=== PATIENT | female | born 1955 | race Caucasian/White ===

== ENCOUNTER 2019-09-17 10:53 | Inpatient (IN) | payer MEDICARE, MEDICAID ==
[~2019-09-17] VITALS: Ht 162.6 cm; Wt 81.6 kg
[2019-09-17] MEDS ORDERED: LISI-186 PO (11:00)
[2019-09-17] MEDS ORDERED: ASPI-1497 PO (11:00)
[2019-09-17] MEDS ORDERED: INSU100I28 SQ (11:00)
[2019-09-17] MEDS ORDERED: SODIUM CHLORIDE 0.9% 1,000 ML IV ONE ×2 (13:56→15:45)
[2019-09-17] MEDS ORDERED: ONDANSETRON HCL 4MG/2ML INJ IV STA (13:56)
[2019-09-17] MEDS ORDERED: FLUORESCEIN SODIUM 1MG/STRIP EACHEYE ONE (14:00)
[2019-09-17 14:50] LABS: BASOPHILS % 0.4 % (0.0-2.0); EOSINOPHILS % 0.1 % (0.0-5.0); HEMATOCRIT. 39.1 % (36.0-48.0); HEMOGLOBIN. 12.9 g/dL (12.0-16.0); LYMPHOCYTES % 20.8 % (20.0-50.0); MEAN CORPUSCULAR VOLUME 90.8 fL (81.0-99.0); MEAN PLATELET VOLUME 10.1 fl (7.4-10.4); MONOCYTES % 5.2 % (2.0-8.0); NEUTROPHILS % 73.5 % (40.0-76.0); PLATELET 280 x1000/uL (130-400); RED BLOOD CELL COUNT 4.31 mill/uL (4.2-5.4); RED CELL DISTRIBUTION WIDTH 13.2 % (11.6-14.6)
[2019-09-17 14:56] LABS: CHLORIDE 91 mEq/L (98-107)
[2019-09-17] MEDS ORDERED: ONDANSETRON HCL 4MG/2ML INJ IV ONE (15:45)
[2019-09-17] MEDS ORDERED: INSULIN LISPRO 100 UNITS/ML SUBCUT ONE (15:45)
[2019-09-17 16:00] LABS: CLARITY URINE CLEAR (CLEAR); COLOR URINE YELLOW (YELLOW); KETONES URINE NEGATIVE (NEGATIVE); LEUKOCYTE ESTERASE URINE NEGATIVE (NEGATIVE); NITRITE URINE NEGATIVE (NEGATIVE); OCCULT BLOOD URINE TRACE (NEGATIVE); PROTEIN URINE 2+ (NEGATIVE); SPECIFIC GRAVITY URINE 1.017 (1.005-1.030); UROBILINOGEN URINE 0.2 E.U./dL (0.2-1.0)
[2019-09-17] MEDS ORDERED: OSELTAMIVIR 75MG CAPSULE PO NR (17:04)
[2019-09-17] MEDS ORDERED: ACETAMINOPHEN 650MG SUPP PR PRN (17:45)
[2019-09-17] MEDS ORDERED: MAGNESIUM/ALUMINUM HYDROXIDE/SIMETHICONE 30ML UDC PO PRN (17:45)
[2019-09-17] MEDS ORDERED: LORAZEPAM 0.5MG TABLET PO PRN (17:45)
[2019-09-17] MEDS ORDERED: DEXTROSE 50% WATER 50ML SYRINGE IV PRN (17:45)
[2019-09-17] MEDS ORDERED: GUAIFENESIN 200MG/10ML SUGAR FREE UDC PO PRN (17:45)
[2019-09-17] MEDS ORDERED: DOCUSATE SODIUM 100MG CAPSULE PO PRN (17:45)
[2019-09-17] MEDS ORDERED: IPRATROPIUM/ALBUTEROL 0.5-3(2.5)MG/3ML NEB NEB PRN (17:45)
[2019-09-17] MEDS ORDERED: ACETAMINOPHEN 325MG TABLET PO PRN (17:45)
[2019-09-17] MEDS ORDERED: FAMOTIDINE 20MG/2ML VIAL IV NR (18:00)
[2019-09-17] MEDS ORDERED: LEVOFLOXACIN 500MG PREMIX 100 ML IV NR (18:00)
[2019-09-17] MEDS: SODIUM CHLORIDE 0.9% 1,000 ML IV SCH (18:41)
[2019-09-17] MEDS: BLOOD SUGAR DIAGNOSTIC STRIP TEST SCH (18:42)
[2019-09-17] MEDS: INSULIN LISPRO 100 UNITS/ML SUBCUT SCH (18:42)
[2019-09-17] MEDS: CLONIDINE 0.1MG TABLET PO PRN (20:41)
[2019-09-17] MEDS ORDERED: ENOXAPARIN 30MG/0.3ML SYR SUBCUT SCH (23:00)
[2019-09-18] VITALS (9 sets, daily range): BP systolic 114–196; BP diastolic 52–96
[2019-09-18] MEDS: BLOOD SUGAR DIAGNOSTIC STRIP TEST SCH ×6 (02:00→23:33)
[2019-09-18] MEDS: SODIUM CHLORIDE 0.9% 1,000 ML IV SCH ×3 (03:31→23:59)
[2019-09-18] MEDS: INSULIN LISPRO 100 UNITS/ML SUBCUT SCH ×6 (03:36→23:39)
[2019-09-18] MEDS ORDERED: PNEUMOCOCCAL 23-VAL P-SAC VAC 0.5 ML IM ONE (03:45)
[2019-09-18 05:06] LABS: BASOPHILS % 0.5 % (0.0-2.0); EOSINOPHILS % 0.6 % (0.0-5.0); HEMATOCRIT. 33.7 % (36.0-48.0); HEMOGLOBIN. 11.5 g/dL (12.0-16.0); LYMPHOCYTES % 25.3 % (20.0-50.0); MEAN CORPUSCULAR HEMOGLOBIN 30.2 pg (28.0-32.0); MEAN CORPUSCULAR VOLUME 88.2 fL (81.0-99.0); MEAN PLATELET VOLUME 9.8 fl (7.4-10.4); MONOCYTES % 7.6 % (2.0-8.0); PLATELET 255 x1000/uL (130-400); RED BLOOD CELL COUNT 3.82 mill/uL (4.2-5.4); RED CELL DISTRIBUTION WIDTH 13.2 % (11.6-14.6)
[2019-09-18 05:22] LABS: CHLORIDE 101 mEq/L (98-107)
[2019-09-18 05:37] LABS: LDL CHOLESTEROL 183 mg/dL (5-100)
[2019-09-18 05:39] LABS: HDL CHOLESTEROL 46 mg/dL (40-59); T4 FREE 1.38 ng/dL (0.76-1.46)
[2019-09-18 07:12] LABS: *AMPHETAMINES SCREEN URINE NEGATIVE (NEGATIVE); *BARBITURATES SCREEN URINE NEGATIVE (NEGATIVE); *BENZODIAZEPINES SCREEN URINE NEGATIVE (NEGATIVE); *COCAINE SCREEN URINE NEGATIVE (NEGATIVE); METHADONE URINE SCREEN NEGATIVE (NEGATIVE); OPIATES URINE SCREEN NEGATIVE (NEGATIVE)
[2019-09-18 07:13] LABS: CANNABINOID URINE SCREEN NEGATIVE (NEGATIVE); PHENCYCLIDINE URINE SCREEN NEGATIVE (NEGATIVE)
[2019-09-18] MEDS: CLONIDINE 0.1MG TABLET PO PRN (08:58)
[2019-09-18] MEDS: FAMOTIDINE 20MG/2ML VIAL IV SCH (08:58)
[2019-09-18] MEDS: HYDROCODONE/ACETAMINOPHEN 5/325MG TABLET PO PRN (09:00)
[2019-09-18] MEDS: LEVOFLOXACIN 250MG PREMIX 50 ML IV SCH (13:11)
[2019-09-18] MEDS ORDERED: LEVOFLOXACIN 500MG PREMIX 100 ML IV SCH (14:00)
[2019-09-18] MEDS: HYDRALAZINE 20MG/ML VIAL IV PRN (14:23)
[2019-09-18] MEDS: ENOXAPARIN 40MG/0.4ML SYR SUBCUT SCH (20:52)
[2019-09-18] MEDS: GABAPENTIN 100MG CAPSULE PO SCH (20:59)
[2019-09-18] MEDS ORDERED: ATORVASTATIN CALCIUM 20MG TABLET PO SCH (21:00)
[2019-09-18] MEDS: ONDANSETRON HCL 4MG/2ML INJ IV PRN (23:46)
[2019-09-19] VITALS (13 sets, daily range): BP systolic 111–182; BP diastolic 56–81
[2019-09-19] MEDS: BLOOD SUGAR DIAGNOSTIC STRIP TEST SCH ×4 (06:00→20:38)
[2019-09-19] MEDS: GABAPENTIN 100MG CAPSULE PO SCH ×3 (07:04→20:33)
[2019-09-19] MEDS: ONDANSETRON HCL 4MG/2ML INJ IV PRN (07:04)
[2019-09-19] MEDS: INSULIN LISPRO 100 UNITS/ML SUBCUT SCH ×4 (07:13→21:35)
[2019-09-19] MEDS: HYDRALAZINE 20MG/ML VIAL IV PRN ×2 (07:54→22:15)
[2019-09-19] MEDS: FAMOTIDINE 20MG/2ML VIAL IV SCH (08:56)
[2019-09-19] MEDS: HYDROCODONE/ACETAMINOPHEN 5/325MG TABLET PO PRN (08:57)
[2019-09-19] MEDS: SODIUM CHLORIDE 0.9% 1,000 ML IV SCH (12:14)
[2019-09-19] MEDS: LEVOFLOXACIN 250MG PREMIX 50 ML IV SCH (12:14)
[2019-09-19] MEDS: CLONIDINE 0.1MG TABLET PO PRN (13:15)
[2019-09-19] MEDS ORDERED: MECLIZINE 25MG TABLET PO PRN (14:45)
[2019-09-19] MEDS ORDERED: INSULIN GLARGINE UD 100 UNITS/ML SYR SUBCUT NR (16:00)
[2019-09-19 18:50] LABS: HEMATOCRIT 32.2 % (36.0-48.0); MEAN CORPUSCULAR VOLUME 88.1 fL (81.0-99.0); PLATELET 248 x1000/uL (130-400); RED BLOOD CELL COUNT 3.65 mill/uL (4.2-5.4); RED CELL DISTRIBUTION WIDTH 13.3 % (11.6-14.6)
[2019-09-19] MEDS: ENOXAPARIN 40MG/0.4ML SYR SUBCUT SCH (20:32)
[2019-09-19] MEDS ORDERED: ERYTHROMYCIN BASE 0.5% OPHTH OINT 3.5GM LEFTEYE SCH (21:00)
[2019-09-19] MEDS ORDERED: ATORVASTATIN CALCIUM 20MG TABLET PO SCH (21:00)
[2019-09-20] VITALS (10 sets, daily range): BP systolic 105–162; BP diastolic 48–90
[2019-09-20] MEDS: SODIUM CHLORIDE 0.9% 1,000 ML IV SCH (00:51)
[2019-09-20] MEDS: GABAPENTIN 100MG CAPSULE PO SCH ×2 (05:47→15:05)
[2019-09-20 07:02] LABS: HEMATOCRIT 32.1 % (36.0-48.0); MEAN CORPUSCULAR HEMOGLOBIN 30.4 pg (28.0-32.0); MEAN CORPUSCULAR VOLUME 88.7 fL (81.0-99.0); PLATELET 231 x1000/uL (130-400); RED BLOOD CELL COUNT 3.62 mill/uL (4.2-5.4); RED CELL DISTRIBUTION WIDTH 13.4 % (11.6-14.6)
[2019-09-20] MEDS: BLOOD SUGAR DIAGNOSTIC STRIP TEST SCH ×3 (07:30→17:47)
[2019-09-20] MEDS: FAMOTIDINE 20MG/2ML VIAL IV SCH (08:55)
[2019-09-20] MEDS: INSULIN LISPRO 100 UNITS/ML SUBCUT SCH ×3 (08:57→17:57)
[2019-09-20] MEDS: LEVOFLOXACIN 250MG PREMIX 50 ML IV SCH (08:58)
[2019-09-20] MEDS: HYDRALAZINE 20MG/ML VIAL IV PRN (09:23)
[2019-09-20] MEDS ORDERED: INSULIN GLARGINE UD 100 UNITS/ML SYR SUBCUT SCH (10:00)
[2019-09-20] MEDS ORDERED: INSULIN GLARGINE UD 100 UNITS/ML SYR SUBCUT NR (13:00)
[2019-09-20] MEDS: CLONIDINE 0.1MG TABLET PO PRN (19:54)
[2019-09-21] MEDS ORDERED: INSULIN GLARGINE UD 100 UNITS/ML SYR SUBCUT SCH (10:00)
== END 2019-09-20 20:20 | DRG 74 ==
LOC: ER 11:40 → 6WST 17:00 → SUPCPDRO 17:03 → ENRESERV 19:51 → 5EST 09-18 09:33 → 6WST 09-20 12:21
PROVIDERS: ADMIT Internal Medicine; ATTEND Internal Medicine
DX: G90.8 Other disorders of autonomic nervous system (principal); E87.1 Hypo-osmolality and hyponatremia; H49.02 Third [oculomotor] nerve palsy, left eye; B34.9 Viral infection, unspecified; E11.65 Type 2 diabetes mellitus with hyperglycemia; E11.22 Type 2 diabetes mellitus with diabetic chronic kidney disease; E78.00 Pure hypercholesterolemia, unspecified; E78.5 Hyperlipidemia, unspecified; E86.0 Dehydration; H02.402 Unspecified ptosis of left eyelid; I12.9 Hypertensive chronic kidney disease with stage 1 through stage 4 chronic kidney disease, or unspecified chronic kidney disease; I27.20 Pulmonary hypertension, unspecified; J84.10 Pulmonary fibrosis, unspecified; Z79.4 Long term (current) use of insulin; Z91.19 Patient's noncompliance with other medical treatment and regimen; Z79.899 Other long term (current) drug therapy; Z79.82 Long term (current) use of aspirin; N18.1 Chronic kidney disease, stage 1
CPT/HCPCS: 36415; 70551; 71045; 74021; 80048; 80053; 80061; 80305; 81003; 82962; 83036; 83880; 84439; 84443; 84484; 85025; 85027; 87804; 90732; 93306; 93970; 96361; 96365; 96366; 96372; 96375; 97162; 97530; 99285; J0360; J1650; J1815; J1956; J2405; J3490; J7030